=== PATIENT | female | born 1990 | race Caucasian/White ===

== ENCOUNTER 2020-04-23 22:42 | Outpatient (CLI) | payer MEDICARE, MEDICAID ==
[~2020-04-23] VITALS: Ht 167.6 cm; Wt 80.5 kg
[~2020-04-23 22:42] MED LIST: ALLEGRA30 MG; MOTRIN 600600 MG/TAB PO; PNV-DHA1 SGL
--- NOTE | 2020-04-23 22:55 | NUR ---
Ambulatory to unit for labor assessment, accompnaied by significant other. Oriented to room, monitor, plan of care. Pt reports "I was watching tv and had a lot of vaginal pressure and cramping"
[2020-04-23 23:00] VITALS: BP 120/73; PULSE 102; TEMP 97.9
[2020-04-23] MEDS ORDERED: ZOLOFT 50MG50 MG PO (23:30)
[2020-04-23] MEDS ORDERED: ZYRTEC5 MG PO (23:31)
[2020-04-24] VITALS: BP 107/63; PULSE 88
--- NOTE | 2020-04-24 | NUR ---
Repeat SVE with no changes noted, findings reviewed with pt. Off monitor.
== END 2020-04-24 00:30 | disposition home or self-care (01) ==
LOC: LDRO 22:42
DX: O62.9 Abnormality of forces of labor, unspecified (principal); O26.893 Other specified pregnancy related conditions, third trimester; R10.9 Unspecified abdominal pain; Z3A.39 39 weeks gestation of pregnancy

== ENCOUNTER 2020-05-03 07:12 | Inpatient (IN) | payer MEDICARE, MEDICAID ==
[2020-05-03] VITALS (39 sets, daily range): BP systolic 74–165; BP diastolic 47–114; PULSE 64–131; TEMP 98.1–98.9
[~2020-05-03] VITALS: Ht 167.6 cm; Wt 78.6 kg
[~2020-05-03 07:12] MED LIST changes: +ZOLOFT 50MG50 MG PO; +ZYRTEC5 MG PO
--- NOTE | 2020-05-03 08:04 | NUR ---
0715 PATIENT HERE FOR INDUCTION. ASSESSMENT COMPLETEED. EFM ON FHT 145 BABY VERY ACTIVE. NO CONTRACTIONS NOTED BY PATIENT OR ON MONITOR. IV STARTED IN LEFT WRIST AND LR STARTED AT THIS TIME.DENIES NEEDS
--- NOTE | 2020-05-03 10:52 | NUR ---
0945 DR GOMEZ AT BEDSIDE. SONO TO COMFIRM POSITION. VERTEX NOTED BY DR. DONOVAN /-
--- NOTE | 2020-05-03 12:11 | NUR ---
1149 DR GOMEZ CALLED WITH UPDATED SVE AND PATIENT WANTING PAIN MEDS. ORDERS FOR FENTANYL 50 IV NOW SINCE PATIENT UNABLE TO GET EPIDURAL SINCE BACK HISTORY.
--- NOTE | 2020-05-03 13:09 | NUR ---
1200 PATIENT FEELING PRESSURE WITH EACH CONTRACTIONS. FENTANTYL NOT GIVEN AT THIS TIME DUE TO PATIENT SVE CHANGE AND PRESSURE WITH CONTRACTIONS.
--- NOTE | 2020-05-03 13:10 | NUR ---
130 DR GOMEZ AT BEDSIDE.
--- NOTE | 2020-05-03 13:21 | NUR ---
1315 URINATES SMALL AMOUNT ON BED SHAVER
[2020-05-03 14:48] LABS: BASO % 0.2 % (0.0-2.0); EOS # 0.2 (0.0-0.7); EOS % 1.5 % (0-4.0); GRAN # 6.1 (1.4-6.5); GRAN % 62.3 % (42.2-75.2); HEMATOCRIT 36.5 % (37.0-47.0); HEMOGLOBIN 11.9 g/dl (12.5-16.0); LYMPH # 2.7 (1.2-3.4); LYMPH % 27.5 % (20.0-51.0); MEAN CELL VOLUME 93 fl (80.0-100.0); MEAN CORPUSCULAR HEMOGLOBIN 30 pg (27.0-31.0); MEAN CORPUSCULAR HGB CONC 33 g/dl (33.0-37.0); MEAN PLATELET VOLUME 10.2 fl (7.4-10.4); MONO # 0.8 (0.1-0.6); MONO % 7.9 % (1.7-9.3); PLATELET COUNT 357 K/mm3 (130-400); RED BLOOD COUNT 3.94 M/mm3 (4.10-5.30); REDCELL DISTRIBUTION WIDTH-CV 14.3 % (11.5-14.5)
--- NOTE | 2020-05-03 16:14 | NUR ---
1400 COMPLETE, WILL START PUSHING WITH EACH CONTRACTIONS.
[2020-05-03] MEDS ORDERED: MOTRIN 800800 MG/TAB PO (21:11)
[2020-05-04 03:30] VITALS: BP 100/75; PULSE 99; TEMP 98.7
[2020-05-04 07:15] VITALS: BP 96/62; PULSE 88; TEMP 97.9
[2020-05-04 07:35] LABS: HEMATOCRIT 30.5 % (37.0-47.0)
[2020-05-04 16:56] VITALS: BP 105/70; PULSE 95; TEMP 98.2
--- NOTE | 2020-05-04 17:56 | NUR ---
PT REFUSES COVID SWAB
[2020-05-04 21:00] VITALS: BP 117/73; PULSE 94; TEMP 97.9
[2020-05-05 08:17] VITALS: BP 93/69; PULSE 85; TEMP 97.4
--- NOTE | 2020-05-05 09:08 | NUR ---
Initial visit; Parents thanked Muffle Worker for offering congratulations and God's blessings for the of their daughter. Muffle Worker thanked family for choosing [facility].
--- NOTE | 2020-05-05 10:45 | NUR ---
Family Practice Md staffed with nurse and compass operator regarding the patient and concerns for safety. CPS report made # [id number].
--- NOTE | 2020-05-05 12:21 | NUR ---
sawmill production worker collaborated with nursing staff and met with patient and father of the baby, Ammon. This is second child for patient. Patient states she has a 5 year old daughter that lives with her father in [place], [place]. Patient states, per custody arrangement, patient has the 5 year old at her home every other weekend. Patient states they have a crib and need to obtain a bassinet and pump. Patient states she has a Parents as Teacher, Ita Lemon. Worker gave a referral to Eve ([facility]) at the [facility] and secured that they will contact patient this afternoon to ensure services for WIC and Early Headstart Program. Patient states she is off from work until the middle of June and that they have day care arranged. [facility] with [facility] stated they can assist patient in getting a pack n play. Nursing will contact Dr Qureshi and provide the above information. sawmill production worker, Mariza, filed a CPS report #[id number] for lack of resources and nursing concerns that patient may not understand safety processes i.e. sleeping, non cluttering crib area.
== END 2020-05-05 12:45 | disposition home or self-care (01) | DRG 807 ==
LOC: LDR 07:12 → OB 08:14
PROVIDERS: ADMIT Obstetrics & Gynecology
PROC: 10E0XZZ Delivery of Products of Conception, External Approach (ICD-10-PCS; principal; 2020-05-03)
PROC: 0KQM0ZZ Repair Perineum Muscle, Open Approach (ICD-10-PCS; 2020-05-03)
PROC: 3E033VJ Introduction of Other Hormone into Peripheral Vein, Percutaneous Approach (ICD-10-PCS; 2020-05-03)
DX: O48.0 Post-term pregnancy (principal); Z37.0 Single live birth; O70.1 Second degree perineal laceration during delivery; O99.344 Other mental disorders complicating childbirth; F41.8 Other specified anxiety disorders; O99.02 Anemia complicating childbirth; D64.9 Anemia, unspecified; F90.9 Attention-deficit hyperactivity disorder, unspecified type; Z3A.41 41 weeks gestation of pregnancy
CPT/HCPCS: J0330; J2590; J2704; J7120

== ENCOUNTER 2021-04-26 12:23 | Observation (INO) | payer MEDICARE, MEDICAID ==
[~2021-04-26] VITALS: Ht 165.1 cm; Wt 67.3 kg
[2021-04-26] VITALS (12 sets, daily range): BP systolic 102–116; BP diastolic 28–68; PULSE 68–96; TEMP 98.2
[~2021-04-26 12:23] MED LIST changes: +MOTRIN 800800 MG/TAB PO
[2021-04-26 13:01] LABS: BASO % 0.4 % (0.0-2.0); EOS # 0.1 K/mm3 (0.0-0.7); EOS % 1.3 % (0.0-4.0); GRAN # 7.3 K/mm3 (1.4-6.5); GRAN % 69.1 % (42.2-75.2); LYMPH # 2.5 K/mm3 (1.2-3.4); LYMPH % 23.3 % (20.0-51.0); MEAN CELL VOLUME 89 fl (80.0-100.0); MEAN CORPUSCULAR HEMOGLOBIN 30 pg (27-31); MEAN CORPUSCULAR HGB CONC 33 g/dl (33.0-37.0); MEAN PLATELET VOLUME 9.6 fl (7.4-10.4); MONO # 0.6 K/mm3 (0.1-0.6); MONO % 5.6 % (1.7-9.3); PLATELET COUNT 341 K/mm3 (130-400); RED BLOOD COUNT 4.36 M/mm3 (4.10-5.30); REDCELL DISTRIBUTION WIDTH-CV 12.6 % (11.5-14.5)
[2021-04-26 13:23] LABS: ALBUMIN 4.2 gm/dL (3.5-5.0); BILIRUBIN,TOTAL 0.4 mg/dL (0.2-1.2); CALCIUM 9.5 mg/dL (8.4-10.2); CREATININE, serum 0.7 mg/dL (0.57-1.11)
--- NOTE | 2021-04-26 16:00 | NUR ---
PT'S BOYFRIEND IN WAITING ROOM WITH 1 YEAR OLD DAUGHTER. POUNDS ON UNIT DOOR REQUESTING STAFF ATTENTION. PT'S BOYFRIEND SHOWING VERBALLY AGGRESSIVE BEHAVIORS TOWARDS STAFF. THIS NURSE RETURNS TO PATIENTS ROOM TO ENSURE PATIENTS SAFETY IN THE HOME. PT VERBALIZES TO THIS NURSE MULTIPLE TIMES SHE IS "SAFE AT HOME" AND "HE JUST DOESNT LIKE HOSPITALS."
--- NOTE | 2021-04-26 16:15 | NUR ---
NO BLEEDING NOTED TO YASEMIN PAD. VITAL SIGNS STABLE THROUGHOUT RECOVERY. PT TOLERATING PO DIET AND LIQUIDS. AMBULATORY THROUGHOUT ROOM WITH STEADY GAIT. ALL DC PAPERWORK AND EDUCATION REVIEWED AND UNDERSTOOD INCLUDING FOLLOW UP APPOINTMENT. PT DENIES FURTHER QUESTIONS OR CONCERNS. ALL BELONGINGS ACCOUNTED FOR. AMULATORY TO EXIT AND LEAVES WITH BOYFRIEND IN PRIVATE VEHICLE.
== END 2021-04-26 16:15 | disposition home or self-care (01) ==
LOC: COL.ER 12:23 → OB 12:46
PROVIDERS: Student in an Organized Health Care Education/Training Program; ADMIT Obstetrics & Gynecology
DX: O03.4 Incomplete spontaneous abortion without complication (principal)
CPT/HCPCS: J0330; J1885; J2210; J2405; J2704; J3010; J7030